=== PATIENT | male | born 1990 | race African-American/Black ===

== ENCOUNTER 2017-02-05 07:14 | Emergency (ER) | payer SELFPAY ==
[~2017-02-05] VITALS: Ht 180.3 cm; Wt 95.5 kg
[2017-02-05] MEDS ORDERED: IBUPROFEN 400 MG TABLET PO ONE (07:45)
[2017-02-05 07:47] VITALS: BP 137/103
== END 2017-02-05 08:02 | disposition home or self-care (01) ==
LOC: EMS 07:15
DX: S13.9XXA Sprain of joints and ligaments of unspecified parts of neck, initial encounter (principal); M54.5 Low back pain; V43.52XA Car driver injured in collision with other type car in traffic accident, initial encounter; Y93.89 Activity, other specified; Y92.488 Other paved roadways as the place of occurrence of the external cause; Y99.8 Other external cause status
CPT/HCPCS: 99282